=== PATIENT | female | born 1985 | race American Indian/Alaskan Native ===

== ENCOUNTER 2017-12-05 07:43 | Emergency (ER) | payer SELFPAY ==
[2017-12-05 07:55] VITALS: BP 111/79
[2017-12-05] MEDS ORDERED: PERCOCET 5/325 PO ONE (09:46)
--- NOTE | 2017-12-05 09:46 | Emergency Department Report ---
HPI - General Chief Complaint: Earache Time Seen by Provider: 12/05/17 09:45 - HPI HPI: Patient complaining of facial pain and left earache 3 days. She reports that she has some drainage from her left ear. Pain is 10 out of 10 and throbbing. Denies any toothache. Denies any cough, nasal congestion. Denies any fever or chills. Ulgr-[id number] medication did not help. Denies any difficulty in hearing but reports that the pain is very intense and she feels like the room is spinning. She denies any trauma to her left ear. ED Past Medical Hx - Past Medical History Previous Medical History?: No - Surgical History Past Surgical History?: Yes Additional Surgical History: left knee pain - Family History Family history: no significant - Social History Smoking Status: Former Smoker Substance Use Type: Alcohol, Non Opiate Pain, Other - Medications Home Medications: Home Medications Medication Instructions Recorded Confirmed Last Taken Type Acetaminophen/Codeine [Tylenol 1 tab PO Q6H PRN #12 tab 12/05/17 Unknown Rx /Codeine # 3 tab] Amoxicillin/K Clav Tab [Augmentin 1 tab PO Q12HR 10 Days #20 tab 12/05/17 Unknown Rx 875 mg] Cetirizine HCl [ZyrTEC] 10 mg PO QDAY 10 Days #10 capsule 12/05/17 Unknown Rx Ibuprofen [Motrin] 600 mg PO Q8H PRN #15 tablet 12/05/17 Unknown Rx Meclizine [Antivert] 25 mg PO TID PRN #12 tablet 12/05/17 Unknown Rx ED Review of Systems ROS: Stated complaint: FACIAL PAIN Other details as noted in HPI Comment: All other systems reviewed and negative Constitutional: no symptoms reported Eyes: denies: eye pain, eye discharge ENT: ear pain, other (facial pain). denies: throat pain, dental pain, hearing loss, congestion Respiratory: no symptoms reported Cardiovascular: denies: chest pain, palpitations, edema, syncope, paroxysmal nocturnal dyspnea Gastrointestinal: denies: abdominal pain, nausea, vomiting Genitourinary: denies: dysuria, hematuria Musculoskeletal: denies: back pain, arthralgia Skin: denies: rash Neurological: vertigo. denies: headache, weakness, abnormal gait Physical Exam - Physical Exam Vital Signs: Vital Signs 12/05/17 07:51 Temperature 97.6 F Pulse Rate 83 Respiratory 20 Rate Blood Pressure 111/79 O2 Sat by Pulse 98 Oximetry ED Course Vital Signs 12/05/17 07:51 Temperature 97.6 F Pulse Rate 83 Respiratory 20 Rate Blood Pressure 111/79 O2 Sat by Pulse 98 Oximetry - Reevaluation(s) Reevaluation #1: 12/05/17 10:38 Patient was given Percocet 5/325 2 tablets by mouth for left ear pain secondary to tympanic membrane rupture. She has not been given Toradol 60 IM by mouth because her pain was not completely very least Critical care attestation.: If time is entered above; I have spent that time in minutes in the direct care of this critically ill patient, excluding procedure time. ED Disposition Clinical Impression: Otalgia of left ear Ruptured ear drum Qualifiers: Laterality: left Qualified Code(s): H72.92 - Unspecified perforation of tympanic membrane, left ear Ear congestion Qualifiers: Laterality: left Qualified Code(s): H93.8X2 - Other specified disorders of left ear Disposition: DC-01 TO HOME OR SELFCARE Is pt being admited?: No Does the pt Need Aspirin: No Condition: Stable Instructions: Ruptured Eardrum (ED), Vertigo (ED), Earache (ED) Additional Instructions: Please follow up with ear nose and throat as recommended. Eardrum can take up to 6 week to heal. Take Tylenol 3 for severe pain but please do not drive or operate heavy machinery while taking this medication. Take Augmentin for ruptured eardrum. This is an antibiotic Take Motrin for moderate pain Take Antivert as prescribed for dizziness or imbalance. Follow-up with outside Medical Center if you do not have a primary care physician Prescriptions: Acetaminophen/Codeine [Tylenol /Codeine # 3 tab] 1 tab PO Q6H PRN #12 tab PRN Reason: Pain , Severe (7-10) Amoxicillin/K Clav Tab [Augmentin 875 mg] 1 tab PO Q12HR 10 Days #20 tab Cetirizine HCl [ZyrTEC] 10 mg PO QDAY 10 Days #10 capsule Ibuprofen [Motrin] 600 mg PO Q8H PRN #15 tablet PRN Reason: Pain Meclizine [Antivert] 25 mg PO TID PRN #12 tablet PRN Reason: Vertigo Referrals: PRIMARY CAREMD [Primary Care Provider] - 12/09/[address] [facility] [Outside] - 12/09/17 ARNALDO CARPENTER [Registered Nurse] - 3-5 Days Forms: Accompanied Note, Work/School Release Form(ED)
[2017-12-05] MEDS ORDERED: TORADOL IM ONE (10:35)
== END 2017-12-05 10:57 | disposition home or self-care (01) ==
LOC: ED 07:43
DX: H72.92 Unspecified perforation of tympanic membrane, left ear (principal); H93.8X2 Other specified disorders of left ear
CPT/HCPCS: 96372; 99282; J1885

== ENCOUNTER 2018-01-23 10:31 | Emergency (ER) | payer SELFPAY ==
[2018-01-23] MEDS ORDERED: TYLENOL #3 PO ONE (12:18)
--- NOTE | 2018-01-23 12:19 | Emergency Department Report ---
ED ENT HPI - General Chief complaint: Dental/Oral Stated complaint: SWOLLEN JAW Time Seen by Provider: 01/23/18 12:09 Source: patient Mode of arrival: Ambulatory Limitations: No Limitations - History of Present Illness Initial comments: 32-year-old female past medical history ruptured eardrum left ear presents with complaint of 2 days of left-sided cheek aching. Some facial swelling reported as per patient. Patient is awake alert and oriented 3 fully lucid speaking in full sentences. Denies any recent dental work denies any pus or blood drainage from mouth. Patient states that her left cheek is aching her significantly. Denies any difficulty speaking. No trismus or drooling noted on exam. No audible wheezing or stridor. Patient's voice is normal as per patient and family member at bedside. Denies fevers chills nausea or vomiting. MD complaint: other (left cheek discomfort) Onset/Timin -: days(s) Location: other (left cheek) Severity: moderate Quality: aching Consistency: constant Worsens with: eating, movement - Related Data Previous Rx's Medication Instructions Recorded Last Taken Type Acetaminophen/Codeine [Tylenol 1 tab PO Q6H PRN #12 tab 12/05/17 Unknown Rx /Codeine # 3 tab] Amoxicillin/K Clav Tab [Augmentin 1 tab PO Q12HR 10 Days #20 tab 12/05/17 Unknown Rx 875 mg] Cetirizine HCl [ZyrTEC] 10 mg PO QDAY 10 Days #10 capsule 12/05/17 Unknown Rx Ibuprofen [Motrin] 600 mg PO Q8H PRN #15 tablet 12/05/17 Unknown Rx Meclizine [Antivert] 25 mg PO TID PRN #12 tablet 12/05/17 Unknown Rx Acetaminophen/Codeine [Tylenol 1 tab PO Q6H PRN #10 tab 01/23/18 Unknown Rx /Codeine # 3 tab] Chlorhexidine Mouthwash [Peridex] 15 ml MM BID #1 bottle 01/23/18 Unknown Rx Ciprofloxacin HCl [Cipro] 500 mg PO BID #14 tablet 01/23/18 Unknown Rx Clindamycin [Clindamycin CAP] 300 mg PO Q6H #40 capsule 01/23/18 Unknown Rx Ibuprofen [Motrin] 600 mg PO Q8H PRN #30 tablet 01/23/18 Unknown Rx Allergies Allergy/AdvReac Type Severity Reaction Status Date / Time No Known Allergies Allergy Verified 01/23/18 11:01 ED Dental HPI - General Chief complaint: Dental/Oral Stated complaint: SWOLLEN JAW Time Seen by Provider: 01/23/18 12:09 Source: patient Mode of arrival: Ambulatory Limitations: No Limitations - Related Data Previous Rx's Medication Instructions Recorded Last Taken Type Acetaminophen/Codeine [Tylenol 1 tab PO Q6H PRN #12 tab 12/05/17 Unknown Rx /Codeine # 3 tab] Amoxicillin/K Clav Tab [Augmentin 1 tab PO Q12HR 10 Days #20 tab 12/05/17 Unknown Rx 875 mg] Cetirizine HCl [ZyrTEC] 10 mg PO QDAY 10 Days #10 capsule 12/05/17 Unknown Rx Ibuprofen [Motrin] 600 mg PO Q8H PRN #15 tablet 12/05/17 Unknown Rx Meclizine [Antivert] 25 mg PO TID PRN #12 tablet 12/05/17 Unknown Rx Acetaminophen/Codeine [Tylenol 1 tab PO Q6H PRN #10 tab 01/23/18 Unknown Rx /Codeine # 3 tab] Chlorhexidine Mouthwash [Peridex] 15 ml MM BID #1 bottle 01/23/18 Unknown Rx Ciprofloxacin HCl [Cipro] 500 mg PO BID #14 tablet 01/23/18 Unknown Rx Clindamycin [Clindamycin CAP] 300 mg PO Q6H #40 capsule 01/23/18 Unknown Rx Ibuprofen [Motrin] 600 mg PO Q8H PRN #30 tablet 01/23/18 Unknown Rx Allergies Allergy/AdvReac Type Severity Reaction Status Date / Time No Known Allergies Allergy Verified 01/23/18 11:01 ED Review of Systems ROS: Stated complaint: SWOLLEN JAW Other details as noted in HPI Constitutional: denies: chills, fever Eyes: denies: eye pain, eye discharge, vision change ENT: denies: ear pain, throat pain Respiratory: denies: cough, shortness of breath, wheezing Cardiovascular: denies: chest pain, palpitations Endocrine: no symptoms reported Gastrointestinal: denies: abdominal pain, nausea, diarrhea Genitourinary: denies: urgency, dysuria, discharge Musculoskeletal: denies: back pain, joint swelling, arthralgia Skin: denies: rash, lesions Neurological: denies: headache, weakness, paresthesias Psychiatric: denies: anxiety, depression Hematological/Lymphatic: denies: easy bleeding, easy bruising ED Past Medical Hx - Past Medical History Previous Medical History?: Yes - Surgical History Past Surgical History?: Yes Additional Surgical History: L. knee - Social History Smoking Status: Never Smoker - Medications Home Medications: Home Medications Medication Instructions Recorded Confirmed Last Taken Type Acetaminophen/Codeine [Tylenol 1 tab PO Q6H PRN #12 tab 12/05/17 Unknown Rx /Codeine # 3 tab] Amoxicillin/K Clav Tab [Augmentin 1 tab PO Q12HR 10 Days #20 tab 12/05/17 Unknown Rx 875 mg] Cetirizine HCl [ZyrTEC] 10 mg PO QDAY 10 Days #10 capsule 12/05/17 Unknown Rx Ibuprofen [Motrin] 600 mg PO Q8H PRN #15 tablet 12/05/17 Unknown Rx Meclizine [Antivert] 25 mg PO TID PRN #12 tablet 12/05/17 Unknown Rx Acetaminophen/Codeine [Tylenol 1 tab PO Q6H PRN #10 tab 01/23/18 Unknown Rx /Codeine # 3 tab] Chlorhexidine Mouthwash [Peridex] 15 ml MM BID #1 bottle 01/23/18 Unknown Rx Ciprofloxacin HCl [Cipro] 500 mg PO BID #14 tablet 01/23/18 Unknown Rx Clindamycin [Clindamycin CAP] 300 mg PO Q6H #40 capsule 01/23/18 Unknown Rx Ibuprofen [Motrin] 600 mg PO Q8H PRN #30 tablet 01/23/18 Unknown Rx ED Physical Exam - General Limitations: No Limitations General appearance: alert, in no apparent distress - Head Head exam: Present: atraumatic, normocephalic - Eye Eye exam: Present: normal appearance, PERRL, EOMI - ENT ENT exam: Present: mucous membranes moist - Expanded ENT Exam Expanded Mouth exam: Present: normal external inspection (no [employer] uvula is midline no tonsillar exudates b/l) - Neck Neck exam: Present: normal inspection, full ROM, lymphadenopathy - Expanded Neck Exam Expanded Neck exam: Present: tenderness 1 - Swelling in this region here with tenderness to palpation - Respiratory Respiratory exam: Present: normal lung sounds bilaterally. Absent: respiratory distress - Cardiovascular Cardiovascular Exam: Present: regular rate, normal rhythm. Absent: systolic murmur, diastolic murmur, rubs, gallop - GI/Abdominal GI/Abdominal exam: Present: soft, normal bowel sounds - Extremities Exam Extremities exam: Present: normal inspection - Back Exam Back exam: Present: normal inspection - Neurological Exam Neurological exam: Present: alert, oriented X3 - Psychiatric Psychiatric exam: Present: normal affect, normal mood - Skin Skin exam: Present: warm, dry, intact, normal color. Absent: rash ED Course Vital Signs 01/23/18 10:58 Temperature 98.9 F Pulse Rate 80 Respiratory 18 Rate Blood Pressure 121/69 O2 Sat by Pulse 100 Oximetry ED Medical Decision Making - Medical Decision Making A/P: Sialolithiasis versus parotitis versus dental abscess 1-case d/w Dr. Hunt who also examined pt 2-empiric course clindamycin+ cipro [email or web address] 3-Motrin when necessary, short course Tylenol 3 when necessary, Peridex mouthwash, sialagogues, sour candy 4- patient advised to return to the ED for any inability to open her mouth difficulty breathing worsening pain and swelling fevers and chills persistent fevers above 100.4 Fahrenheit, nausea and vomiting. I educated patient on signs and symptoms of parotitis and facial abscess. Patient stated she understood my instructions and will return to the ED if symptoms worsen. 5-follow-up with ENT and primary care Critical care attestation.: If time is entered above; I have spent that time in minutes in the direct care of this critically ill patient, excluding procedure time. ED Disposition Clinical Impression: Parotitis Disposition: DC-01 TO HOME OR SELFCARE Is pt being admited?: No Does the pt Need Aspirin: No Condition: Stable Instructions: Parotid Duct Obstruction (ED), Sialoadenitis (ED) Prescriptions: Acetaminophen/Codeine [Tylenol /Codeine # 3 tab] 1 tab PO Q6H PRN #10 tab PRN Reason: Pain Chlorhexidine Mouthwash [Peridex] 15 ml MM BID #1 bottle Ciprofloxacin HCl [Cipro] 500 mg PO BID #14 tablet Clindamycin [Clindamycin CAP] 300 mg PO Q6H #40 capsule Ibuprofen [Motrin] 600 mg PO Q8H PRN #30 tablet PRN Reason: Pain Referrals: [facility]NT [facility] [Provider Group] - 3-5 Days [facility] [Provider Group] - 3-5 Days [facility] [Outside] - 3-5 Days Forms: Accompanied Note, Work/School Release Form(ED) Time of Disposition: 12:22
[2018-01-23 12:51] VITALS: BP 107/64
== END 2018-01-23 12:51 | disposition home or self-care (01) ==
LOC: ED 10:31
DX: K11.20 Sialoadenitis, unspecified (principal)
CPT/HCPCS: 99282

== ENCOUNTER 2018-02-06 18:10 | Emergency (ER) | payer SELFPAY ==
[2018-02-06 18:41] VITALS: BP 125/59
[2018-02-06] MEDS ORDERED: TYLENOL ONE (21:47)
[2018-02-06] MEDS ORDERED: TYLENOL PO ONE (21:50)
== END 2018-02-06 22:50 | disposition left against medical advice (07) ==
LOC: ED 18:10
DX: H92.02 Otalgia, left ear (principal); Z53.21 Procedure and treatment not carried out due to patient leaving prior to being seen by health care provider